=== PATIENT | male | born 1995 | race Caucasian/White ===

== ENCOUNTER 2022-06-22 10:42 | Emergency (ER) | payer OTHER ==
[~2022-06-22] VITALS: Ht 188 cm; Wt 150.0 kg
[2022-06-22 10:44] VITALS: BP 159/90
== END 2022-06-22 12:09 | disposition home or self-care (01) ==
LOC: ER 10:43
DX: S62.392A Other fracture of third metacarpal bone, right hand, initial encounter for closed fracture (principal); W19.XXXA Unspecified fall, initial encounter; Y93.89 Activity, other specified; Y92.89 Other specified places as the place of occurrence of the external cause; Y99.8 Other external cause status
CPT/HCPCS: 29130; 73140; 99283